=== PATIENT | male | born 1945 | race Caucasian/White ===

== ENCOUNTER 2016-10-04 02:51 | Emergency (ER) | payer OTHER ==
[~2016-10-04] VITALS: Ht 175.3 cm; Wt 95.3 kg
[~2016-10-04 02:51] MED LIST: CETI10TA84 PO; CHOLESTEROL COMPLETE PO; MISCTAB30 PO; MULT-506 PO; OMEG10002 PO; PSYL55.43 PO; ZNTT/150 PO
[2016-10-04 02:55] VITALS: TEMP 36.8; Ht 175.3 cm; Wt 95.3 kg
[2016-10-04] MEDS ORDERED: SODIUM CHLORIDE 0.9% 1000ML 1,000 ML IV STA (03:10)
[2016-10-04 03:24] LABS: BASO % 0.3 %; BASO ABS # 0.03 K/uL (0-0.2); COMPLETE YES; EOS % 4.2 %; HEMATOCRIT 43.2 % (42-52); IG% 0.1 %; LYMPH ABS # 3.46 K/uL (1.2-3.4); MEAN CELL VOLUME 87.1 fL (80-100); MEAN CORPUSCULAR HEMOGLOBIN 29.6 pg (25-34); MEAN PLATELET VOLUME 9.6 fL (7.4-10.4); MONO % 10.4 %; PLATELET COUNT 238 K/uL (130-400); RED BLOOD COUNT 4.96 M/uL (4.7-6.1); WHITE BLOOD COUNT 8.87 K/uL (4.8-10.8)
[2016-10-04 03:34] LABS: PARTIAL THROMBOPLASTIN RATIO 1.1; PROTHROMBIN TIME (PATIENT) 10.9 SECONDS (9.0-12.0)
[2016-10-04 03:39] LABS: ALT/SGPT 32 U/L (12-78); AST/SGOT 17 U/L (15-37); BLOOD UREA NITROGEN 17 mg/dl (7-18); BUN/CREATININE RATIO 20.2 (10-20); CALCIUM 8.3 mg/dl (8.5-10.1); CARBON DIOXIDE 24 mmol/L (21-32); CHLORIDE 110 mmol/L (98-107); CREATININE 0.85 mg/dl (0.60-1.40); GLUCOSE 98 mg/dl (70-99); POTASSIUM 3.9 mmol/L (3.5-5.1); SODIUM 143 mmol/L (136-145)
[2016-10-04 03:50] LABS: ALKALINE PHOSPHATASE 59 U/L (45-117); CKMB/CK RATIO 2.1 (0-3.0)
[2016-10-04] MEDS ORDERED: ASPIRIN 81 MG CHEW PO STA (04:33)
--- NOTE | 2016-10-04 04:33 | EMERGENCY ROOM VISIT NOTE ---
History Report prepared by Radhaibgrace: Sebastien Storey Under the Supervision of: Dr. Magdi Gill D.O. First contact with patient: 03:02 Chief Complaint: NEURO SYMPTOMS Stated Complaint: CAN NOT TALK - SHORT TIME History of Present Illness The patient is a 70 year old male who presents to the Emergency Room with complaints of resolved neurological symptoms that occurred at approximately 1430 -1500 today. The patient started experiencing a tingling sensation on the left side of his face. He also noticed that he was unable to speak at that time. The patient's symptoms resolved within 5-10 minutes. The patient did not experience this symptoms before or after the episode earlier today. He denies experiencing any weakness in the arms or legs. The patient does not have any prescriptions. He denies any history of hypertension or hyperlipidemia. Source of History: patient Onset: [id number] today Position: other (global) Quality: other (neurological symptoms) Timing: resolved Associated Symptoms: + numbness, No weakness Review of Systems See HPI for pertinent positives & negatives. A total of 10 systems reviewed and were otherwise negative. Past Medical & Surgical Medical Problems: (1) Asthma (2) Incarcerated left inguinal hernia (3) Spinal stenosis Surgical Problems: (1) History of back surgery Family History No pertinent family history Social History Smoking Status: Never Smoker Alcohol Use: none Drug Use: none Marital Status: Housing Status: lives with significant other Occupation Status: unemployed Current/Historical Medications Scheduled Bupajrwbnlr-Hptftjqqiwh-Bgwarr (Glucosamine Chondroitin M), 1 DOSE PO DAILY Lactobacillus (Digestive Health Probioti), 1 DOSE PO DAILY Misc Natural Products (Cholesterol Support), 1 DOSE PO DAILY Multivitamin (Multivitamin), 1 TAB PO DAILY [place]-3 Fatty Acids (Fish Oil), 1,000 MG PO DAILY Ranitidine (Zantac), 150 MG PO DAILY Specialty Vitamins Products (Prostate), 1 DOSE PO DAILY Allergies Coded Allergies: Oxycodone (Unverified Allergy, Mild, hives, 10/04/16) Prednisone (Unverified Allergy, Mild, rectal bleeding, 10/04/16) Codeine (Verified Adverse Reaction, Intermediate, abd pain, 10/04/16) Cantaloupe (Verified Adverse Reaction, Unknown, SCRATCHY MOUTH, 10/04/16) Macadamia Nut Oil (Verified Adverse Reaction, Unknown, GI UPSET, 10/04/16) Physical Exam Vital Signs Date Time Temp Pulse Resp B/P Pulse Ox O2 Delivery O2 Flow Rate FiO2 10/04/16 04:35 63 18 163/101 95 Room Air 10/04/16 03:25 63 10/04/16 03:17 63 19 161/107 95 Room Air 10/04/16 02:55 36.8 74 16 176/100 93 Room Air Physical Exam VITAL SIGNS: were reviewed as above. GENERAL:Non-toxic in appearance. SKIN: Warm dry and pink. HEAD: Normocephalic and atraumatic. OROPHARYNX: Is clear and moist NECK: Supple without lymphadenopathy or meningismus. LUNGS: clear. HEART: Regular rate and rhythm. ABDOMEN: Soft and nontender. EXTREMITIES: Warm and well perfused. NEUROLOGICALLY: Awake alert and oriented without focal deficit. Cranial nerves 2 -12 are intact. There is no pronator drift. Cerebellar testing is within normal limits. There is no nystagmus. There is no facial droop. Speech is clear. Vision is grossly normal. MUSCULOSKELETAL: Good muscle tone. No evidence of trauma. Medical Decision & Procedures ER Provider Diagnostic Interpretation: X ray results and stated below per my interpretation. Other radiology results and stated below per my review and radiologist interpretation: CHEST ONE VIEW PORTABLE: No acute disease, no pneumothorax, no pneumonia. CT HEAD: No acute intracranial hemorrhage or mass effect. No hydrocephalus. White matter hypodensities, which are nonspecific but are most likely related to chronic small vessel ischemic changes. Mild mucosal thickening of ethmoid air cells and left frontal sinus recess. Radiologist: Kun Cotter MD. US CAROTID: No evidence of hemodynamically significant stenosis. Radiologist: Kun Cotter MD. Laboratory Results 10/04/16 03:15 Red Blood Count 4.96, Mean Corpuscular Volume 87.1, Mean Corpuscular Hemoglobin 29.6, Mean Corpuscular Hemoglobin Concent 34.0, Mean Platelet Volume 9.6, Neutrophils (%) (Auto) 46.0, Lymphocytes (%) (Auto) 39.0, Monocytes (%) (Auto) 10.4, Eosinophils (%) (Auto) 4.2, Basophils (%) (Auto) 0.3, Neutrophils # (Auto ) 4.08, Lymphocytes # (Auto) 3.46, Monocytes # (Auto) 0.92, Eosinophils # (Auto ) 0.37, Basophils # (Auto) 0.03 10/04/16 03:15 Test 10/04/16 03:15 10/04/16 04:33 White Blood Count 8.87 K/uL (4.8-10.8) Red Blood Count 4.96 M/uL (4.7-6.1) Hemoglobin 14.7 g/dL (14.0-18.0) Hematocrit 43.2 % (42-52) Mean Corpuscular Volume 87.1 fL (80-100) Mean Corpuscular Hemoglobin 29.6 pg (25-34) Mean Corpuscular Hemoglobin Concent 34.0 g/dl (32-36) Platelet Count 238 K/uL (130-400) Mean Platelet Volume 9.6 fL (7.4-10.4) Neutrophils (%) (Auto) 46.0 % Lymphocytes (%) (Auto) 39.0 % Monocytes (%) (Auto) 10.4 % Eosinophils (%) (Auto) 4.2 % Basophils (%) (Auto) 0.3 % Neutrophils # (Auto) 4.08 K/uL (1.4-6.5) Lymphocytes # (Auto) 3.46 K/uL (1.2-3.4) Monocytes # (Auto) 0.92 K/uL (0.11-0.59) Eosinophils # (Auto) 0.37 K/uL (0-0.5) Basophils # (Auto) 0.03 K/uL (0-0.2) RDW Standard Deviation 43.2 fL (36.4-46.3) RDW Coefficient of Variation 13.7 % (11.5-14.5) Immature Granulocyte % (Auto) 0.1 % Immature Granulocyte # (Auto) 0.01 K/uL (0.00-0.02) Prothrombin Time 10.9 SECONDS (9.0-12.0) Prothromb Time International Ratio 1.0 (0.9-1.1) Activated Partial Thromboplast Time 27.7 SECONDS (21.0-31.0) Partial Thromboplastin Ratio 1.1 Anion Gap 9.0 mmol/L (3-11) Est Creatinine Clear Calc Drug Dose 89.5 ml/min Estimated GFR () 100.9 Estimated GFR (Non- 87.1 BUN/Creatinine Ratio 20.2 (10-20) Calcium Level 8.3 mg/dl (8.5-10.1) Magnesium Level 2.0 mg/dl (1.8-2.4) Total Bilirubin 0.5 mg/dl (0.2-1) Direct Bilirubin 0.1 mg/dl (0-0.2) Aspartate Amino Transf (AST/SGOT) 17 U/L (15-37) Alanine Aminotransferase (ALT/SGPT) 32 U/L (12-78) Alkaline Phosphatase 59 U/L (45-117) Total Creatine Kinase 122 U/L (39-308) Creatine Kinase MB 2.6 ng/ml (0.5-3.6) Creatine Kinase MB Ratio 2.1 (0-3.0) Troponin I < 0.015 ng/ml (0-0.045) Total Protein 7.1 gm/dl (6.4-8.2) Albumin 3.9 gm/dl (3.4-5.0) Thyroid Stimulating Hormone (TSH) 3.740 uIu/ml (0.300-4.500) Urine Color YELLOW Urine Appearance CLEAR (CLEAR) Urine pH 6.0 (4.5-7.5) Urine Specific [place] 1.013 (1.000-1.030) Urine Protein NEG (NEG) Urine Glucose (UA) NEG (NEG) Urine Ketones NEG (NEG) Urine Occult Blood NEG (NEG) Urine Nitrite NEG (NEG) Urine Bilirubin NEG (NEG) Urine Urobilinogen NEG (NEG) Urine Leukocyte Esterase TRACE (NEG) Urine WBC (Auto) 1-5 /hpf (0-5) Urine RBC (Auto) 0-4 /hpf (0-4) Urine Hyaline Casts (Auto) 0 /lpf (0-5) Urine Epithelial Cells (Auto) 0-5 /lpf (0-5) Urine Bacteria (Auto) NEG (NEG) Laboratory results as stated above per my review. Medications Administered Medications (Trade) Dose Ordered Sig/Nai Route Start Time Stop Time Status Last Admin Dose Admin Sodium Chloride (Nss 1000ml) 1,000 ml @ 999 mls/hr Q1H1M STAT IV 10/04/16 03:10 10/04/16 04:10 DC 10/04/16 03:26 999 MLS/HR Aspirin (Aspirin Chew) 324 mg NOW STAT PO 10/04/16 04:33 10/04/16 04:34 DC 10/04/16 04:59 324 MG ECG Indication: other (numbness) Rate (beats per minute): 66 Rhythm: normal sinus Findings: no acute ischemic change, no ectopy ED Course 0310: Previous medical records were reviewed. The patient was evaluated in room A2. A complete history and physical examination was performed. 0310: NSS 1000 ml @ 999 mls/hr. 0433: Aspirin 324 mg PO. 0435: Reassessed the patient. Discussed the findings with him. He verbalized understanding and agreement of the treatment plan. The patient is ready for discharge. Medical Decision Differential includes acute coronary syndrome, myocardial infarction, CVA, TIA, anemia, infection, pneumonia, UTI, pyelonephritis, poor nutrition, dehydration, electrolyte disturbance,hypoglycemia. This is 70-year-old male who presents to the ED with a chief complaint of a transient episode of difficulty speaking. The patient states that around 2:30 PM yesterday, he had an episode of inability to talk for about 5 or 10 minutes. He states that he was only able to make a small mumble noise. He denies having any other associated symptoms with this. It resolved. He was driving a vehicle at the time. The patient states that he has not had any previous occurrence of similar symptoms and has not had any additional symptoms today. He came in for evaluation tonight at the advice of his . He denies taking any medications currently and denies any past medical history. He states that he doesn't appear to be and has not had any problems with hypertension or high cholesterol past. His neurological exam is completely normal. Initial blood pressure was 176/100. The patient's laboratory studies reveal a normal CBC and complete metabolic panel. Troponin was negative. TSH was normal. Chest x-ray did not show any acute disease. EKG shows a normal sinus rhythm at a rate of 66. CT scan of the brain revealed some microvascular ischemic changes. Carotid ultrasound did not show any significant disease. The patient was treated with aspirin by mouth. He was told to continue full aspirin daily. He was told to follow-up with his PCP in 1-2 days for recheck of his blood pressure. He is felt to be stable for discharge at this time. He is asymptomatic. Impression Primary Impression: TIA (transient ischemic attack) Scribe Attestation The scribe's documentation has been prepared under my direction and personally reviewed by me in its entirety. I confirm that the note above accurately reflects all work, treatment, procedures, and medical decision making performed by me. Departure Information Dispostion Home / Self-Care Referrals Gamal Ramos M.D. (PCP) Forms HOME CARE DOCUMENTATION FORM, IMPORTANT VISIT INFORMATION, WORK / SCHOOL INSTRUCTIONS Patient Instructions My [facility] [place], [place] Additional Instructions Take a full aspirin daily. Follow-up with your doctor in 1-2 days for recheck of your blood pressure. Return here for worsening, recurrence or new concerns.
[2016-10-04] MEDS ORDERED: LACT1CAP4 PO (04:40)
[2016-10-04] MEDS ORDERED: [UNRECOGNIZED DRUG - CODE] PO (04:40)
[2016-10-04] MEDS ORDERED: MISCTAB PO (04:41)
[2016-10-04] MEDS ORDERED: GLUCTAB54 PO (04:42)
[2016-10-04 04:46] LABS: URINE APPEARANCE CLEAR (CLEAR); URINE BILIRUBIN NEG (NEG); URINE COLOR YELLOW; URINE EPITHELIAL CELL AUTO 0-5 /lpf (0-5); URINE NITRITE NEG (NEG); URINE SPECIFIC GRAVITY 1.013 (1.000-1.030); UROBILINOGEN NEG (NEG); ZZUR CULT IF INDIC CLEAN CATCH NO
[2016-10-04 04:47] LABS: MANUAL MICROSCOPIC REQUIRED? NO; REVIEW REQ? NO
[2016-10-04] MEDS ORDERED: NITROGLYCERIN 0.4 MG SL PER TAB CHARGE SL STA (04:57)
[2016-10-04 05:23] VITALS: BP 163/101; PULSE 63; O2SAT 95
--- NOTE | 2016-10-04 07:09 | DIAGNOSTIC IMAGING REPORT ---
CT SCAN OF THE BRAIN WITHOUT IV CONTRAST CLINICAL HISTORY: Change in mental status. COMPARISON STUDY: No priors. TECHNIQUE: Unenhanced axial CT scan of the brain is performed from the vertex to the skull base. CT DOSE: 537.48 mGy.cm FINDINGS: Brain parenchyma: There are age-related involutional changes noting minimal subcortical and periventricular microangiopathic change. There is no hemorrhage, mass effect, or evidence of acute territorial ischemia by CT criteria. Fatima-white matter is preserved. No extra-axial fluid collection is seen. Ventricles, sulci, cisterns: Prominent secondary to involutional change. Intracranial vasculature: There is mild atherosclerotic calcification of the cavernous carotid arteries. Calvarium: Unremarkable. Sinuses and mastoids: Trace mucosal thickening is seen within the ethmoid sinuses and the left frontal sinus. The remaining Visualized paranasal sinuses are clear. The mastoid air cells are well pneumatized. Orbits: The bony orbits are grossly intact. IMPRESSION: There is no hemorrhage, mass effect, or evidence of acute territorial ischemia by CT criteria. Electronically signed by: Gamal Lamar M.D. 10/04/2016 7:08 AM Dictated Date/Time: 10/04/2016 7:05 AM
--- NOTE | 2016-10-04 07:34 | DIAGNOSTIC IMAGING REPORT ---
BILATERAL CAROTID DOPPLER STUDY HISTORY: Transient ischemic attack. COMPARISON: None. TECHNIQUE: Real-time, grayscale, and color Doppler sonography of the carotid arteries was performed. Imaging reviewed in the transverse and longitudinal planes. All measurements were calculated based on NASCET criteria. FINDINGS: Antegrade flow is seen in the bilateral vertebral arteries. The brachial pressures are hemodynamically similar. The peak systolic velocity within the right ICA is 69 cm/s. The right systolic ratio is 0.8. The peak systolic velocity within the left ICA is 53 cm/s. The left systolic ratio is 0.6. IMPRESSION: No hemodynamically significant stenosis seen within the carotid arteries. Electronically signed by: Jose G Duncan M.D. 10/04/2016 7:33 AM Dictated Date/Time: 10/04/2016 7:32 AM
--- NOTE | 2016-10-04 07:48 | DIAGNOSTIC IMAGING REPORT ---
SINGLE VIEW CHEST CLINICAL HISTORY: Change in mental status. Weakness. FINDINGS: An AP, portable, upright chest radiograph is compared to study dated 02/01/2015. The examination is degraded by portable technique, apical lordotic positioning, and patient rotation. The cardiomediastinal heart is top normal for projection. There is mild atherosclerotic calcification of the thoracic aorta. Chronic interstitial thickening and linear scarring/atelectasis at the left lung base are similar to previous. No airspace consolidation, large pleural effusion, or pneumothorax is seen. The skeletal structures are osteopenic. The bony thorax is grossly intact. IMPRESSION: No acute cardiopulmonary abnormality. Electronically signed by: Gamal Lamar M.D. 10/04/2016 7:47 AM Dictated Date/Time: 10/04/2016 7:45 AM
== END 2016-10-04 05:24 | disposition home or self-care (01) ==
LOC: C.EDB 02:52 → C.EDA 05:24
DX: G45.9 Transient cerebral ischemic attack, unspecified (principal); J45.909 Unspecified asthma, uncomplicated; M48.00 Spinal stenosis, site unspecified; Z79.899 Other long term (current) drug therapy; Z98.890 Other specified postprocedural states; Z88.5 Allergy status to narcotic agent; Z88.8 Allergy status to other drugs, medicaments and biological substances; Z91.018 Allergy to other foods

== ENCOUNTER 2017-01-15 19:58 | Emergency (ER) | payer OTHER ==
[~2017-01-15] VITALS: Ht 175.3 cm; Wt 95.5 kg
[~2017-01-15 19:58] MED LIST changes: -CETI10TA84 PO; -CHOLESTEROL COMPLETE PO; +GLUCTAB54 PO; +LACT1CAP4 PO; +MISCTAB PO; -MISCTAB30 PO; -PSYL55.43 PO; +[UNRECOGNIZED DRUG - CODE] PO
[2017-01-15 20:08] VITALS: TEMP 37.6
--- NOTE | 2017-01-15 20:32 | EMERGENCY ROOM VISIT NOTE ---
History Report prepared by Kofi: Kiet Palencia Under the Supervision of: Dr. Magdi Fregoso M.D. First contact with patient: 20:23 Chief Complaint: COUGH Stated Complaint: COUGH,CHESTPAIN,ABD MUSCLE SORE History of Present Illness The patient is a 71 year old male who presents to the Emergency Room with complaints of persistent cough that started 2 days ago. The patient had 2 episodes of diarrhea 3 days ago after having significant abdominal pain. The pain resolved. There were no blood in the bowel movement and the diarrhea has since resolved. When the patient woke up yesterday, he started feeling short of breath. He complains of worsening wheezing despite taking his inhalers. Source of History: patient Onset: 2 days ago Position: other (global) Timing: other (persistent) Associated Symptoms: + SOB, + abdominal pain, + diarrhea Note: Other associated symptoms: wheezing Review of Systems See HPI for pertinent positives & negatives. A total of 10 systems reviewed and were otherwise negative. Past Medical & Surgical Medical Problems: (1) Asthma (2) Incarcerated left inguinal hernia (3) Spinal stenosis Surgical Problems: (1) History of back surgery Family History No pertinent family history Social History Smoking Status: Never Smoker Alcohol Use: none Drug Use: none Marital Status: Housing Status: lives with significant other Occupation Status: unemployed Current/Historical Medications Scheduled Doxycycline Monohydrate (Monodox), 100 MG PO BID Kwmsgzzkshe-Blizjzdnodf-Hvpius (Glucosamine Chondroitin M), 1 DOSE PO DAILY Lactobacillus (Digestive Health Probioti), 1 DOSE PO DAILY Misc Natural Products (Cholesterol Support), 1 DOSE PO DAILY Multivitamin (Multivitamin), 1 TAB PO DAILY [place]-3 Fatty Acids (Fish Oil), 1,000 MG PO DAILY Ranitidine (Zantac), 150 MG PO DAILY Specialty Vitamins Products (Prostate), 1 DOSE PO DAILY Allergies Coded Allergies: Oxycodone (Unverified Allergy, Mild, hives, 10/04/16) Prednisone (Unverified Allergy, Mild, rectal bleeding, 10/04/16) Codeine (Verified Adverse Reaction, Intermediate, abd pain, 10/04/16) Cantaloupe (Verified Adverse Reaction, Unknown, SCRATCHY MOUTH, 10/04/16) Macadamia Nut Oil (Verified Adverse Reaction, Unknown, GI UPSET, 10/04/16) Physical Exam Vital Signs Date Time Temp Pulse Resp B/P Pulse Ox O2 Delivery O2 Flow Rate FiO2 01/15/17 22:10 140/78 01/15/17 21:58 108 17 96 01/15/17 21:28 102 18 96 01/15/17 21:07 95 01/15/17 20:56 81 20 96 Room Air 01/15/17 20:50 96 Mask 01/15/17 20:34 90 Room Air 01/15/17 20:08 37.6 102 20 147/93 90 Room Air Physical Exam GENERAL: Patient is a healthy-appearing well-nourished HEAD: Normocephalic atraumatic EYES: Ocular movements intact pupils equal and react to light OROPHARYNX mucous membranes are moist no exudates present no erythema or edema present NECK: Supple no nuchal rigidity CHEST: Good equal expansion LUNGS: Wheezing bilaterally noted. CARDIAC: Normal S1 and S2 ABDOMEN: Soft nontender no guarding BACK: No CVA tenderness EXTREMITIES: No pain upon palpation normal muscle strength in all groups no clubbing cyanosis or edema NEURO: Patient is following commands is answering questions appropriately. Alert and oriented x3 Cranial Nerves 2-12 grossly intact Medical Decision & Procedures ER Provider Diagnostic Interpretation: X-ray results as stated below per interpretation by me and the radiologist: CHEST ONE VIEW PORTABLE CLINICAL HISTORY: Shortness of breath. COMPARISON STUDY: Chest radiograph October 04, 2016. FINDINGS: Lung volumes are normal. There is no pneumothorax or pleural effusion. Linear left basilar opacity is suggestive of atelectasis. Cardiomediastinal silhouette is within normal limits. There is no evidence of pulmonary edema. There is no consolidation to suggest pneumonia. IMPRESSION: No acute cardiopulmonary findings. Electronically signed by: Gagan Pantoja M.D. 01/15/2017 9:23 PM Dictated Date/Time: 01/15/2017 9:22 PM Laboratory Results 01/15/17 20:50 Red Blood Count 4.86, Mean Corpuscular Volume 89.9, Mean Corpuscular Hemoglobin 28.4, Mean Corpuscular Hemoglobin Concent 31.6, Mean Platelet Volume 9.8, Neutrophils (%) (Auto) 65.8, Lymphocytes (%) (Auto) 18.2, Monocytes (%) (Auto) 14.0, Eosinophils (%) (Auto) 1.5, Basophils (%) (Auto) 0.2, Neutrophils # (Auto ) 6.27, Lymphocytes # (Auto) 1.73, Monocytes # (Auto) 1.33, Eosinophils # (Auto ) 0.14, Basophils # (Auto) 0.02 01/15/17 20:50 Test 01/15/17 20:50 01/15/17 21:00 White Blood Count 9.52 K/uL (4.8-10.8) Red Blood Count 4.86 M/uL (4.7-6.1) Hemoglobin 13.8 g/dL (14.0-18.0) Hematocrit 43.7 % (42-52) Mean Corpuscular Volume 89.9 fL (80-100) Mean Corpuscular Hemoglobin 28.4 pg (25-34) Mean Corpuscular Hemoglobin Concent 31.6 g/dl (32-36) Platelet Count 217 K/uL (130-400) Mean Platelet Volume 9.8 fL (7.4-10.4) Neutrophils (%) (Auto) 65.8 % Lymphocytes (%) (Auto) 18.2 % Monocytes (%) (Auto) 14.0 % Eosinophils (%) (Auto) 1.5 % Basophils (%) (Auto) 0.2 % Neutrophils # (Auto) 6.27 K/uL (1.4-6.5) Lymphocytes # (Auto) 1.73 K/uL (1.2-3.4) Monocytes # (Auto) 1.33 K/uL (0.11-0.59) Eosinophils # (Auto) 0.14 K/uL (0-0.5) Basophils # (Auto) 0.02 K/uL (0-0.2) RDW Standard Deviation 44.6 fL (36.4-46.3) RDW Coefficient of Variation 13.5 % (11.5-14.5) Immature Granulocyte % (Auto) 0.3 % Immature Granulocyte # (Auto) 0.03 K/uL (0.00-0.02) Anion Gap 8.0 mmol/L (3-11) Est Creatinine Clear Calc Drug Dose 75.8 ml/min Estimated GFR () 87.2 Estimated GFR (Non- 75.2 BUN/Creatinine Ratio 10.0 (10-20) Calcium Level 8.4 mg/dl (8.5-10.1) Total Bilirubin 0.9 mg/dl (0.2-1) Aspartate Amino Transf (AST/SGOT) 14 U/L (15-37) Alanine Aminotransferase (ALT/SGPT) 26 U/L (12-78) Alkaline Phosphatase 64 U/L (45-117) Total Creatine Kinase 249 U/L (39-308) Creatine Kinase MB 1.8 ng/ml (0.5-3.6) Creatine Kinase MB Ratio 0.7 (0-3.0) Troponin I < 0.015 ng/ml (0-0.045) Total Protein 7.5 gm/dl (6.4-8.2) Albumin 3.9 gm/dl (3.4-5.0) Globulin 3.6 gm/dl (2.5-4.0) Albumin/Globulin Ratio 1.1 (0.9-2) Influenza Type A (RT-PCR) Neg for Influ A (NEG) Influenza Type A Antigen Neg for Influ A (NEG) Influenza Type B Antigen Neg for Influ B (NEG) Influenza Type B (RT-PCR) Neg for Influ B (NEG) Labs reviewed by ED physician. Medications Administered Medications (Trade) Dose Ordered Sig/Nai Route Start Time Stop Time Status Last Admin Dose Admin Albuterol/ Ipratropium (Duoneb) 12 ml ONE ONCE INH 01/15/17 20:45 01/15/17 20:46 DC 01/15/17 20:55 12 ML Ketorolac Tromethamine 30 mg 30 mg NOW STAT IV 01/15/17 20:37 01/15/17 20:38 DC 01/15/17 20:55 30 MG Sodium Chloride (Nss 1000ml) 1,000 ml @ 999 mls/hr Q1H1M STAT IV 01/15/17 20:37 01/15/17 21:37 DC 01/15/17 20:53 999 MLS/HR Amoxicillin (Amoxil Cap) 500 mg NOW STAT PO 01/15/17 22:11 01/15/17 22:12 DC 01/15/17 22:21 500 MG Doxycycline Hyclate (Vibramycin Cap) 100 mg NOW STAT PO 01/15/17 22:27 01/15/17 22:28 DC 01/15/17 22:32 100 MG ECG Indication: other Rate (beats per minute): 94 Rhythm: normal sinus Findings: no acute ischemic change, no ectopy, 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 The patient was evaluated in room C7. A complete history and physical examination was performed. 2036: Ordered NSS 1000 ml @ 999 mls/hr IV, Toradol Inj 30 mg IV. 2044: Ordered Duoneb 12 ml INH. 2210: Ordered Amoxil Cap 500 mg PO. 2226: Ordered Vibramycin Cap 100 mg PO. 2240: Upon reexamination the patient is resting comfortably. I discussed results and treatment plan with the patient. He verbalizes agreement and understanding. The patient is ready for discharge. Medical Decision Differential diagnosis: Etiologies such as infections, reactive airway disease, pneumonia, pneumothorax , COPD, CHF, cardiac ischemia, pulmonary embolism, musculoskeletal, gastrointestinal, as well as others were entertained. Medication Reconciliation: I attest that I have personally reviewed the patient' s current medication list Blood Pressure Screening: Patient was found to have an elevated blood pressure and was referred to their primary care doctor for recheck and further treatment This is a 71-year-old male who presents emergency department complaining of wheezing. Based on this finding the patient was given an hour-long breathing treatment. The patient is allergic to prednisone as it causes rectal bleeding. For this reason I will place the patient on doxycycline. Chest x-ray is clear the patient does not have an elevation in his white blood count. He is healthy-appearing I believe can be safely discharged home for follow-up this primary care physician. Patient was in agreement with the treatment plan. Impression Primary Impression: Bronchitis Scribe Attestation The scribe's documentation has been prepared under my direction and personally reviewed by me in its entirety. I confirm that the note above accurately reflects all work, treatment, procedures, and medical decision making performed by me. Departure Information Dispostion Home / Self-Care Prescriptions Doxycycline Monohydrate (Monodox) 100 Mg Cap 100 MG PO BID for 10 Days, #20 CAP Prov: Magdi Fregoso MD 01/15/17 Referrals Gamal Ramos M.D. (PCP) Forms HOME CARE DOCUMENTATION FORM, IMPORTANT VISIT INFORMATION Patient Instructions ED Bronchitis Abx Tx, My [facility] Additional Instructions Use inhaler twice every 6 hours You were found to have an elevated blood pressure today (>120 sytolic or >90 diastolic). Per medicare guidelines, you need to follow up with this blood pressure screening with your Primary Care Physician (PCP). For a new PCP call [phone]. You have been examined and treated today on an emergency basis only. This is not a substitute for, or an effort to provide, complete comprehensive medical care. It is impossible to recognize and treat all injuries or illnesses in a single emergency department visit. It is therefore important that you follow up closely with Dr Ramos. Call as soon as possible for an appointment. Thank you for your time and consideration. I look forward to speaking with you again soon. Please don't hesitate to call us if you have any questions.
[2017-01-15] MEDS ORDERED: SODIUM CHLORIDE 0.9% 1000ML 1,000 ML IV STA (20:37)
[2017-01-15] MEDS ORDERED: KETOROLAC TROMETHAMINE 30 MG/ML VIAL IV STA (20:37)
[2017-01-15 20:39] VITALS: Ht 175.3 cm; Wt 95.5 kg
[2017-01-15] MEDS ORDERED: ALBUT/IPRATROP 3MG/0.5MG NEB 3 ML VIAL INH ONE (20:45)
[2017-01-15 20:50] VITALS: O2SAT 96
[2017-01-15 20:56] VITALS: PULSE 81; O2SAT 96
[2017-01-15 21:04] LABS: BASO % 0.2 %; BASO ABS # 0.02 K/uL (0-0.2); COMPLETE YES; EOS % 1.5 %; HEMATOCRIT 43.7 % (42-52); IG% 0.3 %; LYMPH % 18.2 %; LYMPH ABS # 1.73 K/uL (1.2-3.4); MEAN CELL VOLUME 89.9 fL (80-100); MEAN CORPUSCULAR HEMOGLOBIN 28.4 pg (25-34); MEAN CORPUSCULAR HGB CONC 31.6 g/dl (32-36); MEAN PLATELET VOLUME 9.8 fL (7.4-10.4); NEUT % 65.8 %; PLATELET COUNT 217 K/uL (130-400); RED BLOOD COUNT 4.86 M/uL (4.7-6.1); WHITE BLOOD COUNT 9.52 K/uL (4.8-10.8)
--- NOTE | 2017-01-15 21:24 | DIAGNOSTIC IMAGING REPORT ---
CHEST ONE VIEW PORTABLE CLINICAL HISTORY: Shortness of breath. COMPARISON STUDY: Chest radiograph October 04, 2016. FINDINGS: Lung volumes are normal. There is no pneumothorax or pleural effusion. Linear left basilar opacity is suggestive of atelectasis. Cardiomediastinal silhouette is within normal limits. There is no evidence of pulmonary edema. There is no consolidation to suggest pneumonia. IMPRESSION: No acute cardiopulmonary findings. Electronically signed by: Gagan Pantoja M.D. 01/15/2017 9:23 PM Dictated Date/Time: 01/15/2017 9:22 PM
[2017-01-15 21:51] LABS: ALB/GLOB RATIO 1.1 (0.9-2); ALKALINE PHOSPHATASE 64 U/L (45-117); ALT/SGPT 26 U/L (12-78); AST/SGOT 14 U/L (15-37); BLOOD UREA NITROGEN 10 mg/dl (7-18); CHLORIDE 108 mmol/L (98-107); CKMB/CK RATIO 0.7 (0-3.0); CREATININE 0.99 mg/dl (0.60-1.40); GLUCOSE 103 mg/dl (70-99); POTASSIUM 3.9 mmol/L (3.5-5.1); SODIUM 141 mmol/L (136-145)
[2017-01-15 21:58] VITALS: PULSE 108; O2SAT 96
[2017-01-15 21:58] LABS: CALCIUM 8.4 mg/dl (8.5-10.1); CARBON DIOXIDE 25 mmol/L (21-32)
[2017-01-15 22:10] VITALS: BP 140/78
[2017-01-15] MEDS ORDERED: AMOXICILLIN 250 MG CAP PO STA (22:11)
[2017-01-15] MEDS ORDERED: DOXYCYCLINE HYCLATE 100 MG CAP PO STA (22:27)
[2017-01-15] MEDS ORDERED: DOXY100C76 PO (22:28)
[2017-01-15 22:54] LABS: INFLUENZA A PCR Neg for Influ A (NEG); INFLUENZA B PCR Neg for Influ B (NEG)
== END 2017-01-15 22:43 | disposition home or self-care (01) ==
LOC: C.EDB 19:59 → C.EDC 22:43
DX: J45.909 Unspecified asthma, uncomplicated (principal); R19.7 Diarrhea, unspecified; Z98.890 Other specified postprocedural states; Z88.8 Allergy status to other drugs, medicaments and biological substances

== ENCOUNTER → 2017-03-20 | Outpatient (CLI) | payer OTHER | END | disposition home or self-care (01) | LOC: C.PATHSPEC 14:28 | PROVIDERS: ATTEND Family Medicine | DX: C44.612 Basal cell carcinoma of skin of right upper limb, including shoulder (principal); D23.61 Other benign neoplasm of skin of right upper limb, including shoulder; L90.5 Scar conditions and fibrosis of skin ==

== ENCOUNTER → 2017-05-24 | Outpatient (CLI) | payer OTHER ==
[2017-05-24 14:41] LABS: CHOLESTEROL/HDL RATIO 4.9
== END | disposition home or self-care (01) ==
LOC: C.LABMFLN 07:08
PROVIDERS: ATTEND Family Medicine
DX: E78.00 Pure hypercholesterolemia, unspecified (principal); Z13.220 Encounter for screening for lipoid disorders

== ENCOUNTER → 2017-07-17 | Outpatient (CLI) | payer OTHER | END | disposition home or self-care (01) | LOC: C.PATHSPEC 12:44 | PROVIDERS: ATTEND Family Medicine | DX: B07.9 Viral wart, unspecified (principal) ==

== ENCOUNTER → 2018-03-20 | Outpatient (CLI) | payer OTHER ==
[~2018-03-20] MED LIST changes: +RANI150T85 PO; -ZNTT/150 PO
[2018-03-20 13:22] LABS: BLOOD UREA NITROGEN 15 mg/dl (7-18); CALCIUM 8.7 mg/dl (8.5-10.1); CARBON DIOXIDE 25 mmol/L (21-32); CREATININE 0.94 mg/dl (0.60-1.40); GLUCOSE 97 mg/dl (70-99); SODIUM 139 mmol/L (136-145)
== END | disposition home or self-care (01) ==
LOC: C.LABMFLN 07:37
PROVIDERS: ATTEND Family Medicine
DX: I10 Essential (primary) hypertension (principal)

== ENCOUNTER 2021-02-09 10:27 | Observation (INO) ==
[2021-02-09 11:29] LABS: Basophils # (auto) 0.01 K/uL (0-0.2); Basophils % (auto) 0.1 %; Eosinophils # (auto) 0.13 K/uL (0-0.5); Eosinophils % (auto) 1.5 %; Hematocrit (blood only) 43.2 % (42-52); Hemoglobin 14.5 g/dL (14.0-18.0); Immature Granulocytes # (auto) 0.01 K/uL (0.00-0.02); Immature Granulocytes % (auto) 0.1 %; Lymphocytes # (auto) 2.27 K/uL (1.2-3.4); Lymphocytes % (auto) 26.6 %; Mean Corpuscular Hemoglobin 29.9 pg (25-34); Mean Corpuscular Hgb Conc 33.6 g/dL (32-36); Mean Corpuscular Volume 89.1 fL (80-100); Mean Platelet Volume 9.8 fL (7.4-10.4); Monocytes # (auto) 0.88 K/uL (0.11-0.59); Monocytes % (auto) 10.3 %; Neutrophils # (auto) 5.22 K/uL (1.4-6.5); Neutrophils % (auto) 61.4 %; Platelet Count 234 K/uL (130-400); RDW Coefficient of Variation 13.5 % (11.5-14.5); RDW Standard Deviation 44.2 fL (36.4-46.3); Red Blood Count 4.85 M/uL (4.7-6.1); White Blood Count 8.52 K/uL (4.8-10.8)
[2021-02-09] MEDS ORDERED: PANTOprazole 40 MG in SYRINGE 0 ML IV ONE (11:29)
[2021-02-09] MEDS ORDERED: SODIUM CHLORIDE 0.9% 500 ML IV ONE (11:29)
[2021-02-09 11:50] LABS: Alanine Aminotransferase 26 U/L (12-78); Albumin Level 3.6 gm/dl (3.4-5.0); Aspartate Aminotransferase 16 U/L (15-37); BUN Creatinine Ratio 27.5 (10-20); Blood Urea Nitrogen 23 mg/dl (7-18); Calcium 8.5 mg/dl (8.5-10.1); Carbon Dioxide 23 mmol/L (21-32); Chloride 112 mmol/L (98-107); Est GFR (African American) 97.9 ml/min; Est GFR (Non-African American) 84.5 ml/min; Glucose 93 mg/dl (70-99); Lipase 66 U/L (73-393); Potassium 3.8 mmol/L (3.5-5.1); Sodium 140 mmol/L (136-145)
[2021-02-09 11:53] LABS: Alkaline Phosphatase 58 U/L (45-117); Bilirubin,Total 2.6 mg/dl (0.2-1); Globulin 3.5 gm/dl (2.5-4.0); Total Protein 7.1 gm/dl (6.4-8.2)
[2021-02-09 12:57] LABS: INR 1.1 (0.9-1.1); Partial Thromboplastin Time 27.1 Seconds (21.0-31.0); Prothrombin Time 10.9 Seconds (9.0-12.0)
--- NOTE | 2021-02-09 13:13 | Emergency Department Note ---
Impression & Plan Melena, Nausea & vomiting, Aspirin long-term use ED Provider Note NAME: MAR IRVIN AGE: 75 SEX: M ARRIVES VIA: Walk-In INFORMANT: Patient, ED PROVIDER(S): Preet Nevarez MD CHIEF COMPLAINT: n/v, black stool PLAN: Disposition: Admit MEDICAL DECISION MAKING: The patient is a pleasant 75-year-old gentleman with a past medical history of hypertension who presents to the emergency department for evaluation of black stool which began yesterday and was associated with nausea and vomiting which initially was bilious. The patient then had small amounts of blood and then was coffee-ground in character. He had black watery stools yesterday but into today had more hardened black stool this morning. He called his PCP and was referred to the emergency department. He does not take iron supplements. He denies any dizziness or near syncope. At this time he denies any nausea or abdominal pain. He denies any recent fevers, chills, cough, congestion, urinary symptoms. He denies being on any blood thinners. He does take baby aspirin daily. Denies any prior history of ulcers or GI bleeding in the past. He does admit to having history of acid reflux and recalls that he was instructed to avoid acidic foods. He does report that he recently started a [id number] supplement that is based in poarch juice. On arrival the patient is well-appearing in no acute distress, afebrile stable vital signs. His abdomen is benign. Rectal exam does demonstrate scant black stool that is Hemoccult positive. There is no large volume melena or h emorrhage. EKG without overt acute ischemia. Chest x-ray negative for acute cardiopulmonary process and no free air. WBC, H/H and platelets within normal limits. Chemistry without metabolic acidosis. BUN is elevated at 23. Total bilirubin 2.6 however direct bilirubin 0.4 and in setting of the patient's vomiting yesterday. LFTs are otherwise unremarkable. Lipase is not elevated. Given the patient's abdomen is benign will defer advanced imaging at this time. However reasonable to admit the patient for further observation given active melena. Patient was given IV Protonix. Patient is agreement with plan for admission. Dr. Rao, [facility] hospitalist, will evaluate the patient for admission. Triage Nursing notes reviewed and agree them. Prior medical records reviewed Vital Signs: reviewed and remarkable for no significant abnormalities Differential diagnosis: Diverticulosis, AVM, coagulopathy, colitis, inflammatory bowel disease, malignancy, Kiesha-Gan tear, esophagitis, peptic ulcer disease, variceal bleed, gastritis, epistaxis, fissure, hemorrhoids, as well as other pathologies. ER treatment provided: See below. Diagnostics interpreted by me: ECG: Normal sinus rhythm, 78 bpm, no ectopy, no overt ST elevation or depres andreina, QTC 444, QRS 104. Cardiac Monitoring: An order for continuous cardiac monitoring was placed and demonstrated Normal sinus rhythm, 78 bpm, no ectopy. Laboratory studies: See below Imaging studies: See below Consultation(s): Dr. Rao, [facility] hospitalist, will evaluate the patient for admission. HPI: The patient is a pleasant 75-year-old gentleman with a past medical history of hypertension who presents to the emergency department for evaluation of black stool which began yesterday and was associated with nausea and vomiting which initially was bilious. The patient then had small amounts of blood and then was coffee-ground in character. He had black watery stools yesterday but into today had more hardened black stool this morning. He called his PCP and was referred to the emergency department. He does not take iron supplements. He denies any dizziness or near syncope. At this time he denies any nausea or abdominal pain. He denies any recent fevers, chills, cough, congestion, urinary symptoms. He denies being on any blood thinners. He does take baby aspirin daily. Denies any prior history of ulcers or GI bleeding in the past. He does admit to having history of acid reflux and recalls that he was instructed to avoid acidic foods. He does report that he recently started a zueq-azw-jhywure supplement that is based in poarch juice. ROS: See above HPI for pertinent positives & negatives. A total of 10 systems reviewed and were otherwise negative. PAST MEDICAL HISTORY:See Below PAST SURGICAL HISTORY:See Below FAMILY HISTORY:See Below SOCIAL HISTORY:See Below HOME MEDICATIONS:See Below ALLERGIES:See Below VITALS:See Below PHYSICAL EXAMINATION: GENERAL: Awake, alert, well-appearing, in no distress HENT: Normocephalic, atraumatic. Oropharynx with dry mucous membranes and otherwise unremarkable. EYES: Normal conjunctiva. Sclera non-icteric. NECK: Supple. No nuchal rigidity. FROM. No JVD. RESPIRATORY: Clear to auscultation. CARDIAC: Regular rate, normal rhythm. Extremities warm and well perfused. Pulses equal. ABDOMEN: Soft, non-distended. No tenderness to palpation. No rebound or guarding. No masses. RECTAL: Scant melena. Hemoccult positive. No large-volume melena or hemorrhage. MUSCULOSKELETAL: Chest examination reveals no tenderness. The back is symmetrical on inspection without obvious abnormality. There is no CVA tenderness to palpation. No joint edema. LOWER EXTREMITIES: Calves are equal size bilaterally and non-tender. No edema. No discoloration. NEURO: Normal sensorium. No sensory or motor deficits noted. SKIN: No rash or jaundice noted. Preet Nevarez MD Past Med/Surg History Medical History Asthma uses PRN inh 3 x wk on average BPH (benign prostatic hyperplasia) GERD (gastroesophageal reflux disease) History of basal cell carcinoma History of TIA (transient ischemic attack) 2016 Hypertension Osteoarthritis Surgical History History of cataract surgery History of colonoscopy History of hand surgery Left History of lumbar spinal fusion 2013 History of Mohs micrographic surgery for skin cancer Forehead, RUE History of skin surgery removal of lesions/tags from nose and other facial areas-Dr. Valverde-09/09/2020 History of tonsillectomy Hx of hernia repair 2014 Family History Father Hearing loss Heart disease Allergies Hypertension Diabetes Mother Hypertension Brother Diabetes Other No significant family history Denies family history of No family history of adverse response to anesthesia No family history of bleeding disorder Cancer Stroke Asthma Social History Smoking Status: Never smoker Second Hand Exposure: Yes (child); Do You Dip or Chew Tobacco: No; Hx Alcohol Use: No Hx Substance Use: No Preferred Language: Sinhala Communication Ability: Effective Beliefs That Will Affect Care: Lutheran Lutheran Beliefs: Menenite marital status: Current Living Situation: Spouse Current Living Situation Comment: home current occupational status: retired Other Information That Helps Us Care for You: No Feels Safe at Home: Yes Seatbelt Use: always Assistive Devices: Glasses Allergies Allergies Allergy/AdvReac Type Severity Reaction Status Date / Time oxycodone Allergy Mild hives Verified 02/09/21 13:42 prednisone Allergy Mild rectal Verified 02/09/21 13:42 bleeding azithromycin Allergy Unknown Verified 02/09/21 13:42 latex Allergy Redness of Verified 02/09/21 13:42 Skin codeine AdvReac Intermediate abd pain Verified 02/09/21 13:42 mold AdvReac Unknown GI UPSET Verified 02/09/21 13:42 Cantaloupe AdvReac Unknown SCRATCHY Uncoded 02/09/21 13:42 MOUTH Home Meds Home Medications Medication Instructions Recorded Confirmed coenzyme Q10 100 mg capsule 100 mg PO QAM 04/08/19 02/09/21 multivitamin 1 tab PO QAM 04/08/19 02/09/21 Prostate Health 2 tab PO QAM 08/23/20 02/09/21 aspirin 81 mg PO QAM 08/23/20 02/09/21 losartan 25 mg PO QAM 08/23/20 02/09/21 albuterol sulfate 2 inh INH HS PRN 02/09/21 02/09/21 Previous Rx's Medication Instructions Recorded sildenafil (pulm.hypertension) 20 20 mg PO .COMPLEX #30 tab 11/03/ mg tablet Results & Data (ED) Vital Signs Vital Signs - 24 hr 02/09/21 10:32 02/09/21 12:28 02/09/21 14:00 Temperature 36.4 C L Temperature Source Temporal Artery Scan Pulse Rate 90 Pulse Rate [Apical] 83 71 Respiratory Rate 18 18 18 Respiratory Effort / Characteristics Non-Labored Spontaneous Respiratory Depth Normal Respiratory Pattern Regular Blood Pressure 126/86 Blood Pressure [Left Arm] 122/77 130/93 Blood Pressure Mean 99 Blood Pressure Mean [Left Arm] 92 105 Pulse Oximetry 94 96 97 Oxygen Delivery Method Room Air Room Air Room Air Sepsis Recent Fever Within 48 Hours No Sepsis New/Unexplained Change in Mental Status No Sepsis Action Taken by Nursing No Action Required Laboratory Data Attestation: I reviewed the patient's lab results. Result diagrams: 02/09/21 17:29 02/09/21 11:02 Lab Results 02/09/21 02/09/21 02/09/21 Range/Units 11:02 11:02 11:02 WBC 8.52 (4.8-10.8) K/uL RBC 4.85 (4.7-6.1) M/uL Hgb 14.5 (14.0-18.0) g/dL Hct 43.2 (42-52) % MCV 89.1 (80-100) fL MCH 29.9 (25-34) pg MCHC 33.6 (32-36) g/dL RDW Std Deviation 44.2 (36.4-46.3) fL RDW Coeff of Kole 13.5 (11.5-14.5) % Plt Count 234 (130-400) K/uL MPV 9.8 (7.4-10.4) fL Immature Gran % (Auto) 0.1 % Neut % (Auto) 61.4 % Lymph % (Auto) 26.6 % [place] % (Auto) 10.3 % Eos % (Auto) 1.5 % Baso % (Auto) 0.1 % Neut # (Auto) 5.22 (1.4-6.5) K/uL Lymph # (Auto) 2.27 (1.2-3.4) K/uL [place] # (Auto) 0.88 H (0.11-0.59) K/uL Eos # (Auto) 0.13 (0-0.5) K/uL Baso # (Auto) 0.01 (0-0.2) K/uL Immature Gran # (Auto) 0.01 (0.00-0.02) K/uL PT (9.0-12.0) Seconds INR (0.9-1.1) APTT (21.0-31.0) Seconds PTT Ratio Sodium 140 (136-145) mmol/L Potassium 3.8 (3.5-5.1) mmol/L Chloride 112 H (98-107) mmol/L Carbon Dioxide 23 (21-32) mmol/L Anion Gap 5.0 (3-11) BUN 23 H (7-18) mg/dl Creatinine 0.84 (0.6-1.4) mg/dl Est Cr Clr Drug Dosing Not Reportable Est GFR ( Amer) 97.9 ml/min Est GFR (Non-Af Amer) 84.5 ml/min BUN/Creatinine Ratio 27.5 H (10-20) Glucose 93 (70-99) mg/dl Calcium 8.5 (8.5-10.1) mg/dl Total Bilirubin 2.6 H (0.2-1) mg/dl Direct Bilirubin 0.4 H (0-0.2) mg/dl AST 16 (15-37) U/L ALT 26 (12-78) U/L Alkaline Phosphatase 58 (45-117) U/L Total Protein 7.1 (6.4-8.2) gm/dl Albumin 3.6 (3.4-5.0) gm/dl Globulin 3.5 (2.5-4.0) gm/dl Albumin/Globulin Ratio 1.0 (0.9-2) Lipase 66 L (73-393) U/L COVID-19 Eval Order SARS-CoV-2 (PCR) (Negative) Blood Type Antibody Screen 02/09/21 02/09/21 02/09/21 Range/Units 12:12 12:12 12:15 WBC (4.8-10.8) K/uL RBC (4.7-6.1) M/uL Hgb (14.0-18.0) g/dL Hct (42-52) % MCV (80-100) fL MCH (25-34) pg MCHC (32-36) g/dL RDW Std Deviation (36.4-46.3) fL RDW Coeff of Kole (11.5-14.5) % Plt Count (130-400) K/uL MPV (7.4-10.4) fL Immature Gran % (Auto) % Neut % (Auto) % Lymph % (Auto) % [place] % (Auto) % Eos % (Auto) % Baso % (Auto) % Neut # (Auto) (1.4-6.5) K/uL Lymph # (Auto) (1.2-3.4) K/uL [place] # (Auto) (0.11-0.59) K/uL Eos # (Auto) (0-0.5) K/uL Baso # (Auto) (0-0.2) K/uL Immature Gran # (Auto) (0.00-0.02) K/uL PT 10.9 (9.0-12.0) Seconds INR 1.1 (0.9-1.1) APTT 27.1 (21.0-31.0) Seconds PTT Ratio 1.0 Sodium (136-145) mmol/L Potassium (3.5-5.1) mmol/L Chloride (98-107) mmol/L Carbon Dioxide (21-32) mmol/L Anion Gap (3-11) BUN (7-18) mg/dl Creatinine (0.6-1.4) mg/dl Est Cr Clr Drug Dosing Est GFR ( Amer) ml/min Est GFR (Non-Af Amer) ml/min BUN/Creatinine Ratio (10-20) Glucose (70-99) mg/dl Calcium (8.5-10.1) mg/dl Total Bilirubin (0.2-1) mg/dl Direct Bilirubin (0-0.2) mg/dl AST (15-37) U/L ALT (12-78) U/L Alkaline Phosphatase (45-117) U/L Total Protein (6.4-8.2) gm/dl Albumin (3.4-5.0) gm/dl Globulin (2.5-4.0) gm/dl Albumin/Globulin Ratio (0.9-2) Lipase (73-393) U/L COVID-19 Eval Order Covid19 at [facility] SARS-CoV-2 (PCR) (Negative) Blood Type A Positive Antibody Screen NEGATIVE 02/09/21 Range/Units 12:15 WBC (4.8-10.8) K/uL RBC (4.7-6.1) M/uL Hgb (14.0-18.0) g/dL Hct (42-52) % MCV (80-100) fL MCH (25-34) pg MCHC (32-36) g/dL RDW Std Deviation (36.4-46.3) fL RDW Coeff of Kole (11.5-14.5) % Plt Count (130-400) K/uL MPV (7.4-10.4) fL Immature Gran % (Auto) % Neut % (Auto) % Lymph % (Auto) % [place] % (Auto) % Eos % (Auto) % Baso % (Auto) % Neut # (Auto) (1.4-6.5) K/uL Lymph # (Auto) (1.2-3.4) K/uL [place] # (Auto) (0.11-0.59) K/uL Eos # (Auto) (0-0.5) K/uL Baso # (Auto) (0-0.2) K/uL Immature Gran # (Auto) (0.00-0.02) K/uL PT (9.0-12.0) Seconds INR (0.9-1.1) APTT (21.0-31.0) Seconds PTT Ratio Sodium (136-145) mmol/L Potassium (3.5-5.1) mmol/L Chloride (98-107) mmol/L Carbon Dioxide (21-32) mmol/L Anion Gap (3-11) BUN (7-18) mg/dl Creatinine (0.6-1.4) mg/dl Est Cr Clr Drug Dosing Est GFR ( Amer) ml/min Est GFR (Non-Af Amer) ml/min BUN/Creatinine Ratio (10-20) Glucose (70-99) mg/dl Calcium (8.5-10.1) mg/dl Total Bilirubin (0.2-1) mg/dl Direct Bilirubin (0-0.2) mg/dl AST (15-37) U/L ALT (12-78) U/L Alkaline Phosphatase (45-117) U/L Total Protein (6.4-8.2) gm/dl Albumin (3.4-5.0) gm/dl Globulin (2.5-4.0) gm/dl Albumin/Globulin Ratio (0.9-2) Lipase (73-393) U/L COVID-19 Eval Order SARS-CoV-2 (PCR) NEGATIVE (Negative) Blood Type Antibody Screen Administered Medications Discontinued Medications Sodium Chloride (Nss) 500 mls @ 999 mls/hr IV .Q31M ONE Stop: 02/09/21 11:59 Last Infusion: 02/09/21 13:09 Dose: 0 mls/hr Documented by: [id number] Admin: 02/09/21 12:29 Dose: 999 mls/hr Documented by: [id number] Pantoprazole Sodium 40 mg/ (Syringe) 10 mls @ 5 mls/min IV NOW ONE Stop: 02/09/21 11:30 Last Admin: 02/09/21 12:29 Dose: 5 mls/min Documented by: [id number] Imaging Data Radiologist's Impression: Chest X-Ray 02/09/21 13:13 SINGLE VIEW CHEST CLINICAL HISTORY: Vomiting. Melena. FINDINGS: An AP, portable, upright chest radiograph is compared to study dated 01/15/2017. The heart is top normal for projection noting atherosclerotic calcification of the thoracic aorta. The pulmonary vasculature is noncongested. There is bibasilar scarring/atelectasis. No airspace consolidation or large pleural effusion is identified. No pneumothorax is seen. The skeletal structures are osteopenic. The bony thorax is grossly intact. IMPRESSION: No active disease in the chest. ACT 112: Negative or not required by law. Electronically signed by: Gamal Lamar M.D. 02/09/2021 1:39 PM Discharge Plan Visit Data Chief Complaint: Vomiting Stated Complaint: VOMITING, NAUSEA ED Provider: Preet Nevarez Discharge Problem: Melena, Nausea & vomiting, Aspirin long-term use Patient Disposition: Admitted As Inpatient Discharge Instructions Interventions: ED Discharge Assessment Last Done: 02/09/21 16:58 Discharge Problem: Nausea & vomiting Qualifiers: Vomiting type: unspecified Vomiting Intractability: non-intractable Qualified Code(s): R11.2 - Nausea with vomiting, unspecified
--- NOTE | 2021-02-09 13:40 | XRay Report ---
SINGLE VIEW CHEST CLINICAL HISTORY: Vomiting. Melena. FINDINGS: An AP, portable, upright chest radiograph is compared to study dated 01/15/2017. The heart i s top normal for projection noting atherosclerotic calcification of the thoracic aorta. The pulmonary vasculature is noncongested. There is bibasilar scarring/atelectasis. No airspace consolidation or l arge pleural effusion is identified. No pneumothorax is seen. The skeletal structures are osteopenic. The bony thorax is grossly intact. IMPRESSION: No active disease in the chest. ACT 112: Negative or not required by law. Electronically signed by: Gamal Lamar M.D. 02/09/2021 1:39 PM
--- NOTE | 2021-02-09 13:56 | History & Physical Report ---
Date of Service February 09, 2021 Assessment & Plan (1) Melena: FOB +ve in ER No anemia but will trend H&H q6h Suspect mild UGI bleed in setting of gastroenteritis and uncontrolled gastritis Stop aspirin Pantoprazole 40mg IV BID NPO after midnight with IV fluids Consult gastroenterology (2) Gastroenteritis: Suspected based on with similar symptoms just days before Stool culture (3) GERD (gastroesophageal reflux disease): Patient controlling inappropriately with antacids likely making the situation worse longer term. Continue (4) Benign essential hypertension: Continue losartan 25mg PO daily with hold parameters (5) BPH (benign prostatic hyperplasia): Continue his prostate health pill on discharge Admission and Anticipated Discharge Date Admission Date: February 09, 2021 History of Present Illness Chief Complaint: Black stool, nausea, vomiting Primary Care Provider: Gamal Ramos MD Ez Medina is a 75 year old male who presents to the ER with vomiting black liquid and black diarrhea. Symptoms started yesterday when he woke up around 5:30am and while in the toilet he vomited, initially yellow then red, then black. Shortly after he passed stool which was also black. Dry heaves after this with possibly few blood clots. x6 bowel movements throughout the day with loose, non-watery, stool. This morning he started having black stool again. Has not managed to eat anything since his symptoms began but his appetite has returned now. Initially had mild abdominal pain but is currently pain free today. His had similar illness on Sunday. He called his PCP this morning about his symptoms and recommended he goes to the ER for evaluation. He has a history of GERD and has been taking increasingly amounts of antacids regularly for the last 2 months (previously using baking soda prior to that). No regular NSAIDs. Takes aspirin 81mg PO daily for primary prophylaxis. He has a hi story with what sounds like hemorrhoid bleeds but has never needed a blood transfusion. He has regular colonoscopies every 10 years which have never shown any problems. No prior EGD. In the ER hemoglobin 14.5, BUN 23, bilirubin 2.6. He was treated with NSS 1L bolus and pantoprazole 40mg IV. He denies any chest pain, shortness of breath or dizziness. He was referred to medicine for admission and ongoing management of melena. Allergies Allergy/AdvReac Type Severity Reaction Status Date / Time oxycodone Allergy Mild hives Verified 02/09/21 13:42 prednisone Allergy Mild rectal Verified 02/09/21 13:42 bleeding azithromycin Allergy Unknown Verified 02/09/21 13:42 latex Allergy Redness of Verified 02/09/21 13:42 Skin codeine AdvReac Intermediate abd pain Verified 02/09/21 13:42 mold AdvReac Unknown GI UPSET Verified 02/09/21 13:42 Cantaloupe AdvReac Unknown SCRATCHY Uncoded 02/09/21 13:42 MOUTH Home Medications Medication Instructions Recorded Confirmed Type coenzyme Q10 100 mg capsule 100 mg PO QAM 04/08/19 02/09/21 History multivitamin 1 tab PO QAM 04/08/19 02/09/21 History sildenafil (pulm.hypertension) 20 20 mg PO .COMPLEX #30 tab 11/04/19 02/09/21 Rx mg tablet Prostate Health 2 tab PO QAM 08/23/20 02/09/21 History aspirin 81 mg PO QAM 08/23/20 02/09/21 History losartan 25 mg PO QAM 08/23/20 02/09/21 History albuterol sulfate 2 inh INH HS PRN 02/09/21 02/09/21 History Past Med/Surg History Medical History Asthma uses PRN inh 3 x wk on average BPH (benign prostatic hyperplasia) GERD (gastroesophageal reflux disease) History of basal cell carcinoma History of TIA (transient ischemic attack) 2016 Hypertension Osteoarthritis Surgical History History of cataract surgery History of colonoscopy History of hand surgery Left History of lumbar spinal fusion 2013 History of Mohs micrographic surgery for skin cancer Forehead, RUE History of skin surgery removal of lesions/tags from nose and other facial areas-Dr. Valverde-09/09/2020 History of tonsillectomy Hx of hernia repair 2014 Family History Father Hearing loss Heart disease Allergies Hypertension Diabetes Mother Hypertension Brother Diabetes Other No significant family history Denies family history of No family history of adverse response to anesthesia No family history of bleeding disorder Cancer Stroke Asthma Social History Smoking Status: Never smoker Second Hand Exposure: Yes (child); Do You Dip or Chew Tobacco: No; Hx Alcohol Use: No Hx Substance Use: No Preferred Language: Lithuanian Communication Ability: Effective Beliefs That Will Affect Care: Zoroastrian Zoroastrian Beliefs: Menenite marital status: Current Living Situation: Spouse Current Living Situation Comment: home current occupational status: retired Other Information That Helps Us Care for You: No Feels Safe at Home: Yes Seatbelt Use: always Assistive Devices: Glasses Review of Systems Review of Systems: All systems reviewed & are unremarkable except as noted in HPI & below Physical Exam Constitutional: WD/WN, vitals as above Eyes: + anicteric sclerae; no conjunctival abnormality and normal pupil size ENMT: external ear and nose normal, oropharynx normal Respiratory: normal respiratory effort, lungs clear to auscultation Cardiovascular: RRR, no murmur, no edema Gastrointestinal (Abdomen): normal bowel sounds, soft, nontender, no hepatosplenomegaly Musculoskeletal: no cyanosis or clubbing, extremities motor strength 5/5 Skin: no rashes, warm and dry Neurologic: moves all extremities and awake; no focal motor deficits and not confused Motor/Sensory: no tremor and no pronator drift Psychiatric: A+Ox3, euthymic affect Results & Data Results & Data ([facility]) Vital Signs (Past 12 Hours) Vital Signs Temp Pulse Pulse Resp BP BP Pulse Ox 02/09/21 12:28 83 18 122/77 96 02/09/21 10:32 36.4 C L 90 18 126/86 94 Diagnostic Findings SINGLE VIEW CHEST IMPRESSION: No active disease in the chest. Medications Administered ER Medications Given: NSS 500 ml bolus Pantoprazole 40mg IV ECG Rate (beats per minute): 78 Rhythm: normal sinus Findings: no acute ischemic change Comparison ECG Date: from (January 15, 2017) Change: no significant change Code Status & VTE Plan Code Status DNR/DNI per patient wishes VTE Prophylaxis Plan VTE Prophylaxis will be ordered: Yes Reason for no VTE drug order: Contraindicated PG Care Time/CCT Total # of Minutes Spent Total Time Spent with Patient: Total time spent is greater than 50% in coordination of care (as documented) at patient's floor/unit and/or counseling patient: Coding Level of Care Code 28283 OBS Care - Level 2 Diagnoses Melena K92.1 Gastroenteritis K52.9 GERD (gastroesophageal reflux disease) K21.01 Esophagitis presence: with esophagitis Esophagitis bleeding: with hemorrhage Benign essential hypertension I10 BPH (benign prostatic hyperplasia) N40.0 (1) GERD (gastroesophageal reflux disease) Esophagitis presence: with esophagitis Esophagitis bleeding: with hemorrhage Qualified Code(s): K21.01 - Gastro-esophageal reflux disease with esophagitis, with bleeding
--- NOTE | 2021-02-09 15:28 | Electrocardiogram Report ---
Test Reason : Blood Pressure : / mmHG Vent. Rate : 078 BPM Atrial Rate : 078 BPM P-R Int : 160 ms QRS Dur : 104 ms QT Int : 390 ms P-R-T Axes : 040 000 047 degrees QTc Int : 444 ms Normal sinus rhythm Possible Inferior infarct (cited on or before 15-JAN-2017) Abnormal ECG When compared with ECG of 15-JAN-2017 20:39, No significant change was found Confirmed by Janak Souza ([id number]) on 02/09/2021 3:28:27 PM Referred By: REFERRED SELF Confirmed By:Janak Souza
[2021-02-09] MEDS ORDERED: ALBUTEROL HFA 8 GM INHALER INH PRN (17:23)
[2021-02-09 17:46] LABS: Hemoglobin 14.1 g/dL (14.0-18.0)
[2021-02-09] MEDS: LACTATED RINGER'S 1,000 ML IV SCH (21:38)
[2021-02-09] MEDS: PANTOprazole 40 MG in SYRINGE 0 ML IV SCH (21:38)
[2021-02-09 23:30] LABS: Hemoglobin 14.1 g/dL (14.0-18.0)
[2021-02-10] MEDS: LACTATED RINGER'S 1,000 ML IV SCH (05:46)
[2021-02-10] MEDS: PANTOprazole 40 MG in SYRINGE 0 ML IV SCH (07:59)
[2021-02-10 08:17] LABS: Basophils # (auto) 0.02 K/uL (0-0.2); Basophils % (auto) 0.3 %; Eosinophils # (auto) 0.26 K/uL (0-0.5); Eosinophils % (auto) 3.7 %; Hematocrit (blood only) 39.6 % (42-52); Hemoglobin 12.9 g/dL (14.0-18.0); Immature Granulocytes # (auto) 0.01 K/uL (0.00-0.02); Immature Granulocytes % (auto) 0.1 %; Lymphocytes # (auto) 2.38 K/uL (1.2-3.4); Lymphocytes % (auto) 33.7 %; Mean Corpuscular Hemoglobin 29.3 pg (25-34); Mean Corpuscular Hgb Conc 32.6 g/dL (32-36); Mean Corpuscular Volume 89.8 fL (80-100); Mean Platelet Volume 9.8 fL (7.4-10.4); Monocytes # (auto) 0.69 K/uL (0.11-0.59); Monocytes % (auto) 9.8 %; Neutrophils % (auto) 52.4 %; Platelet Count 224 K/uL (130-400); RDW Coefficient of Variation 13.5 % (11.5-14.5); RDW Standard Deviation 44.5 fL (36.4-46.3); Red Blood Count 4.41 M/uL (4.7-6.1); White Blood Count 7.06 K/uL (4.8-10.8)
[2021-02-10 08:56] LABS: Calcium 8.7 mg/dl (8.5-10.1); Est GFR (African American) 98.4 ml/min; Est GFR (Non-African American) 84.9 ml/min; Potassium 4.1 mmol/L (3.5-5.1)
[2021-02-10] MEDS ORDERED: LOSARTAN POTASSIUM 25 MG TAB PO SCH (09:00)
[2021-02-10] MEDS ORDERED: NON-FORMULARY MEDICATION (Coenzyme Q10 [Coq-10] 100 mg capsule) PO SCH (09:00)
[2021-02-10] MEDS ORDERED: MULTIVITAMIN TAB PO SCH (09:00)
[2021-02-10 14:44] VITALS: BP 109/66; TEMP 97.5; O2SAT 94
[2021-02-10 15:54] VITALS: PULSE 77
--- NOTE | 2021-02-10 20:13 | Discharge Summary ---
Date of Service February 10, 2021 Admission HPI Per Admitting Provider Ez Medina is a 75 year old male who presents to the ER with vomiting black liquid and black diarrhea. Symptoms started yesterday when he woke up around 5:30am and while in the toilet he vomited, initially yellow then red, then black. Shortly after he passed stool which was also black. Dry heaves after this with possibly few blood clots. x6 bowel movements throughout the day with loose, non-watery, stool. This morning he started having black stool again. Has not managed to eat anything since his symptoms began but his appetite has returned now. Initially had mild abdominal pain but is currently pain free today. His had similar illness on Sunday. He called his PCP this morning about his symptoms and recommended he goes to the ER for evaluation. He has a history of GERD and has been taking increasingly amounts of antacids regularly for the last 2 months (previously using baking soda prior to that). No regular NSAIDs. Takes aspirin 81mg PO daily for primary prophylaxis. He has a history with what sounds like hemorrhoid bleeds but has never needed a blood transfusion. He has regular colonoscopies every 10 years which have never shown any problems. No prior EGD. In the ER hemoglobin 14.5, BUN 23, bilirubin 2.6. He was treated with NSS 1L bolus and pantoprazole 40mg IV. He denies any chest pain, shortness of breath or dizziness. He was referred to medicine for admission and ongoing management of melena. Principal Diagnosis Upper GI bleed with a mild degree of acute blood loss anemia, secondary to viral gastroenteritis, presumably superimposed on a degree of aspirin induced gastritis. May also have a touch of lower GI bleeding from hemorrhoids. Discharge Exam In general he is awake and alert, oriented x3, pleasant no distress. HEENT normocephalic atraumatic mucous membranes are moist. Breathing unlabored no accessory muscle use good effort. Abdomen is soft nondistended nontender no masses organomegaly. Extremities show no cyanosis or clubbing. Neuro shows no focal deficits. Discharge Data Allergies Allergy/AdvReac Type Severity Reaction Status Date / Time oxycodone Allergy Mild hives Verified 02/09/21 13:42 prednisone Allergy Mild rectal Verified 02/09/21 13:42 bleeding azithromycin Allergy Unknown Verified 02/09/21 13:42 latex Allergy Redness of Verified 02/09/21 13:42 Skin codeine AdvReac Intermediate abd pain Verified 02/09/21 13:42 mold AdvReac Unknown GI UPSET Verified 02/09/21 13:42 Cantaloupe AdvReac Unknown SCRATCHY Uncoded 02/09/21 13:42 MOUTH Consultations 02/09/21 13:05 ED Decision to Admit Stat Hospital Course (1) Melena: Predominantly melena, also a little bit of hematochezia. He appears to have had a mild degree of acute blood loss anemia related to his GI bleeding, versus simply dilutional from IV fluids, likely a bit of both. Fortunately he is totally hemodynamically stable and shows no indications to need ongoing hemodynamic management or transfusion. Clinically he seems to have had the bleeding stopped. More than likely his course of events was a degree of aspirin induced gastritis which was then made worse by a viral gastroenteritis (his was sick with similar symptoms a few days prior to him). Given his stability, and normal exam, we discussed options, and he very much preferred an outpatient course of treatment. We agreed that he should see GI to discuss an endoscopic work-up, and that an EGD plus or minus colonoscopy is likely warranted, but given his overall stability, this could be very safely done as an outpatient. Hold aspirin (after we discussed, after I had done discharge instructions, he recalled that he was on aspirin for a "mini stroke" so I discussed with him that likely in the future his PCP will want to resume it) Protonix 40 mg twice daily for now, titrate/wean depending on further clinical course and findings at endoscopy Outpatient GI follow-up to discuss endoscopic work-up Outpatient PCP follow-up to follow on how he is doing, follow hemoglobin, further discuss safe resumption of aspirin, and oversee the rest of his care (2) Gastroenteritis: Suspected based on with similar symptoms just days before Resolved (3) GERD (gastroesophageal reflux disease): Outpatient follow-up, predominantly dovetails with above plan (4) Benign essential hypertension: Home on home meds (5) BPH (benign prostatic hyperplasia): Total Time Total Time Spent Total Time Spent (In Minutes): >30 Discharge Plan Discharge Items Patient Disposition: Home - Self-Care Reason For Visit: VOMITING, NAUSEA Discharge Diagnosis: vomiting likely due to viral gastroenteritis, upper GI bleeding that has now stabilized (see below) Activity: Resume your previous activity Non-emergency contact: Primary Care Provider and Business Performance Specialist Call non-emergency contact if: you have any medication questions and your symptoms worsen Follow-up/Referrals: Gamal Ramos MD [Primary Care Provider] - Diet: Regular Addtl Attending Provider Instructions: nausea/vomting and upper GI bleeding -the "cascade of events" that seems to have happened: --often when people take an aspirin a day, it can lead to a little bit of stomach lining breakdown - often more like a "brush burn" (gastritis) that might be mildly symptomatic at worst. sometimes truly an ulcer, but not that often. this probably sets up a "foundation" for bleeding. from there, given that you and your both got sick with the same kind of thing, it's highly likely that you had a stomach bug (vs less likely food poisoning, but the timeline of events makes that less probable). when your stomach already has a bit of erosions on the lining (gastritis) then the inflammation from an infection like a virus can lead to really accentuated bleeding. this appears to be what occurred with you. given some of the bright red blood with your bowel movements, it's also possible that you separately had a little bit of lower bleeding, too, but the most likely source for this would have just been hemorrhoids. fortunately your stomach examines fine and you are appearing very stable. you did lose a little blood with the bleeding, but your blood pressure/heart rate have been just fine, and while your blood counts are a little low (12.9) you're still miles away from where we would even need to think about a transfusion (7.0). -it appears safe to get you home - but look at this as a "work in progress" --> we'll treat for what things appear to be, but also have you follow up with Dr Roberson ([facility] gastroenterology) to discuss a further endoscopic workup (most likely an "upper GI" or EGD, less likely but possibly a colonoscopy as well) -we'll have you stop taking the aspirin for the foreseeable future (an aspirin is VERY helpful in preventing heart attacks and strokes when someone is known to have vascular disease; when someone has never shown themselves to have "clogged arteries" (ie never had a heart attack, stroke, etc) while an aspirin still can be helpful as a preventative, it's much more nebulous, and in lots of people the risks actually outweigh the benefits). Depending on what the scopes show, and how you're doing, Dr Ramos will be the best "tank truck driver" to help you determine if you should eventually get back on the aspirin, or stay off it indefinitely. -we'll have you on a stomach acid suppression medication (protonix, pantoprazole) twice a day until directed otherwise. "Directed otherwise" will come based on how you're doing and what the scopes show. sometimes people can come off the medicine really quickly, other times they need to be on it twice a day for several months, then once a day for a while; and of course, some people are in between... otherwise as we discussed, most poeople really don't get much of any benefit from vitamins -- it's been pretty well studied that if someone doesn't have a deficiency in any specific nutrient, there's not much benefit in "oversupplementing" -- and to that end, all the vitamins you're taking might also be contributing to upsetting your stomach some just from the pill-load. around here, there's a good bit of vitamin D defciency (just from [place] so it might be reasonable to keep on a vitamin D3, but even that, Dr Ramos could always grab a vitamin D level when you're due for other labwork and help you decide if even that is needed. otherwise, you're far better off taking the money you spend on vitamins and rolling it over to healthy foods to get vitamins and nutrients the way God made them! "marching orders" -stop aspirin -take protonix (pantoprazole) twice a day until proven otherwise -see Dr Roberson in the next week or so to talk about/get set up for scopes -see Dr Ramos in 1-2 weeks to follow up on how you're doing and to get follow up blood counts checked -call/return if you have ongoing/worsening GI bleeding, or if you were to feel weak/lightheaded/dizzy, or if you were to have stomach pain with/after eating. Pending Studies at Discharge: No Stand-Alone Forms: My [employer], Smoking Cessation Medications and DC Order Prescriptions: New pantoprazole 40 mg tablet,delayed release (DR/EC) 40 mg PO BID Qty: 60 RF: 0 Continued sildenafil (pulm.hypertension) 20 mg tablet 20 mg PO .COMPLEX Qty: 30 RF: 11 losartan 25 mg tablet 25 mg PO QAM RF: 0 albuterol sulfate 90 mcg/actuation HFA aerosol inhaler 2 inh INH HS PRN (Reason: shortness of breath or wheezing) RF: 0 Discontinued coenzyme Q10 [CoQ-10] 100 mg capsule 100 mg PO QAM RF: 0 multivitamin tablet 1 tab PO QAM RF: 0 aspirin 81 mg tablet,chewable 81 mg PO QAM RF: 0 Prostate Health 160-100-100 mg-unit-mcg tablet 2 tab PO QAM RF: 0 Discharge Orders: Discharge Order (Routine); Ordered 02/10/21 Ordered By: Luis Angel Freire/Other Patient Handouts: Bleeding Gastrointestinal Admission Data Admit Date/Time: 02/09/21 14:34 Attending Provider: Talha Shea Admit Provider: Carroll Rao Primary Care Provider: Gamal Ramos Other Providers: Carroll Rao Other Interventions: Discharge Summary Assessment (RN) Last Done: 02/10/21 15:52 Coding Level of Care Code 98574 OBS Care - Discharge Diagnoses Melena K92.1 Gastroenteritis K52.9 GERD (gastroesophageal reflux disease) K21.01 Esophagitis presence: with esophagitis Esophagitis bleeding: with hemorrhage Benign essential hypertension I10 BPH (benign prostatic hyperplasia) N40.0
== END 2021-02-10 16:19 | disposition home or self-care (01) ==
LOC: ED 10:27 → 3W 10:27 → SUATTDRO 14:34 → 3W 16:58